=== PATIENT | male | born 1975 | race Two or more races ===

== ENCOUNTER 2017-12-05 09:00 | Outpatient (CLI) | payer OTHER | END 2017-12-05 09:08 | disposition home or self-care (01) | LOC: RAD 09:00 | DX: M79.671 Pain in right foot (principal) ==

== ENCOUNTER → 2017-12-05 | Outpatient (CLI) | payer OTHER ==
[~2017-12-05] MED LIST: SEPTRA DS TABLE1 TAB PO
== END | disposition home or self-care (01) ==
LOC: PPHC 08:23
DX: M79.671 Pain in right foot (principal)

== ENCOUNTER 2018-06-14 10:57 | Emergency (ER) | payer OTHER ==
[~2018-06-14] VITALS: Ht 170.2 cm; Wt 77.6 kg
== END 2018-06-14 17:50 | disposition home or self-care (01) ==
LOC: ER 10:57
DX: K63.89 Other specified diseases of intestine (principal)

== ENCOUNTER → 2019-12-03 09:24 | Outpatient (CLI) | payer OTHER | END | disposition home or self-care (01) | LOC: LAB 09:24 | DX: I10 Essential (primary) hypertension (principal); Z12.11 Encounter for screening for malignant neoplasm of colon; Z13.6 Encounter for screening for cardiovascular disorders; Z00.00 Encounter for general adult medical examination without abnormal findings ==

== ENCOUNTER → 2019-12-04 | Outpatient (CLI) | payer OTHER | END | disposition home or self-care (01) | LOC: LAB 09:18 | DX: Z12.11 Encounter for screening for malignant neoplasm of colon (principal); I10 Essential (primary) hypertension; Z13.6 Encounter for screening for cardiovascular disorders; Z00.00 Encounter for general adult medical examination without abnormal findings ==

== ENCOUNTER → 2020-06-14 | Outpatient (CLI) | payer OTHER | END | disposition home or self-care (01) | LOC: PPH VACUNA | DX: Z23 Encounter for immunization (principal) ==

== ENCOUNTER 2021-05-16 06:25 | Outpatient (CLI) | payer OTHER | END 2021-05-16 06:26 | disposition home or self-care (01) | LOC: LAB 06:25 | PROVIDERS: ATTEND Internal Medicine Gastroenterology | DX: Z12.11 Encounter for screening for malignant neoplasm of colon (principal); Z00.00 Encounter for general adult medical examination without abnormal findings ==

== ENCOUNTER → 2021-05-20 09:13 | Outpatient (CLI) | payer OTHER | END | disposition home or self-care (01) | LOC: LAB 09:13 | PROVIDERS: ATTEND Internal Medicine Gastroenterology | DX: Z11.52 Encounter for screening for COVID-19 (principal) ==

== ENCOUNTER 2021-06-19 08:00 | Outpatient (CLI) | payer OTHER | END 2021-06-19 08:30 | disposition home or self-care (01) | LOC: PPH VACUNA 08:00 | PROVIDERS: ATTEND Emergency Medicine Pediatric Emergency Medicine | DX: Z23 Encounter for immunization (principal) ==

== ENCOUNTER 2021-09-11 11:21 | Outpatient (CLI) | payer OTHER | END 2021-09-11 11:22 | disposition home or self-care (01) | LOC: LAB 11:21 | PROVIDERS: ATTEND Emergency Medicine | DX: Z03.818 Encounter for observation for suspected exposure to other biological agents ruled out (principal); R05.8 Other specified cough; R06.02 Shortness of breath ==

== ENCOUNTER 2022-02-10 08:38 | Outpatient (CLI) | payer OTHER | END 2022-02-10 08:44 | disposition home or self-care (01) | LOC: LAB 08:38 | PROVIDERS: ATTEND General Practice | DX: R07.0 Pain in throat (principal) ==

== ENCOUNTER 2022-06-06 08:00 | Outpatient (CLI) | payer OTHER | END 2022-06-06 08:05 | disposition home or self-care (01) | LOC: PPH VACUNA 08:00 | PROVIDERS: ATTEND Emergency Medicine Pediatric Emergency Medicine | DX: Z23 Encounter for immunization (principal) ==

== ENCOUNTER 2022-09-25 14:41 | Outpatient (CLI) | payer OTHER | END 2022-09-25 14:58 | disposition home or self-care (01) | LOC: LAB 14:41 | PROVIDERS: ATTEND Preventive Medicine Occupational Medicine | DX: U07.1 COVID-19 (principal) ==

== ENCOUNTER 2024-08-05 09:45 | Outpatient (CLI) | payer OTHER | END 2024-08-05 10:00 | disposition home or self-care (01) | LOC: PPH VACUNA 09:45 | PROVIDERS: ATTEND Emergency Medicine Pediatric Emergency Medicine | DX: Z23 Encounter for immunization (principal) ==

== ENCOUNTER 2024-11-10 13:33 | Outpatient (CLI) | payer OTHER ==
[2024-11-12 06:09] LABS: HEPATITIS A ANTIBODY IGG Negative (Negative); HEPATITIS B SURFACE ANTIBODY Non Reactive (.); HEPATITIS C VIRUS ANTIBODY Non Reactive (Non Reactive)
== END 2024-11-10 13:34 | disposition home or self-care (01) ==
LOC: LAB 13:33
DX: A64 Unspecified sexually transmitted disease (principal); B19.9 Unspecified viral hepatitis without hepatic coma